=== PATIENT | female | born 1970 | race Hispanic/Latino ===

== ENCOUNTER 2017-09-12 17:52 | Emergency (ER) | payer BC, OTHER ==
[2017-09-12] MEDS ORDERED: ORPHENADRINE CITRATE 30 MG/ML ML ONE (18:14)
[2017-09-12] MEDS ORDERED: KETOROLAC TROMETHAMINE 30MG/ML ONE (18:14)
== END 2017-09-12 19:11 | disposition home or self-care (01) ==
LOC: EDH 17:52
DX: M54.42 Lumbago with sciatica, left side (principal); E11.9 Type 2 diabetes mellitus without complications; Z98.890 Other specified postprocedural states; Z79.4 Long term (current) use of insulin
CPT/HCPCS: 96372 ×2; 99284; J1885; J2360

== ENCOUNTER → 2021-02-11 | Outpatient (CLI) | payer OTHER | END | disposition home or self-care (01) | LOC: RAH 08:19 | PROVIDERS: ATTEND Physical Medicine & Rehabilitation | DX: M47.26 Other spondylosis with radiculopathy, lumbar region (principal); M51.17 Intervertebral disc disorders with radiculopathy, lumbosacral region; M48.07 Spinal stenosis, lumbosacral region | CPT/HCPCS: 72148 ==